=== PATIENT | female | born 1990 | race African-American/Black ===

== ENCOUNTER 2021-07-19 19:00 | Emergency (ER) | payer SELFPAY ==
[2021-07-19] MEDS ORDERED: Dexamethasone 10 MG/ML VIAL ONE (22:38)
[2021-07-19] MEDS ORDERED: Ketorolac Tromethamine 30 MG/ML VIAL ONE (22:38)
[2021-07-19 23:01] LABS: Bilirubin Neg (Negative); Blood, Urine 50 (Negative); Clarity Clear (Clear); Glucose, Urine (Dipstick) Normal (Negative); Ketone, Urine Negative (Negative); Leukocyte 25 (Negative); Nitrite Negative (Negative); Protein, Urine (Dipstick) Negative (Neg-Trace); Urobilinogen Normal mg/dL (Less than 2)
[2021-07-19 23:04] LABS: Pregnancy Test - Urine (BHCG) Negative (Negative); Pregu Control Background? CLEAR/WHITE (CLR/WHITE); Pregu Control Bar Appear? YES (CONTROL BAR)
[2021-07-19 23:11] LABS: Bacteria/HPF 2+ HPF (None Seen); Mucous/LPF 2+ LPF (<2+); RBC/HPF 0-3 HPF (0-3); Squamous Epithelial 0-3 HPF (0-3)
== END 2021-07-19 23:14 | disposition home or self-care (01) ==
LOC: CSHERS 19:00
DX: M54.50 Low back pain, unspecified (principal); D57.3 Sickle-cell trait; F17.210 Nicotine dependence, cigarettes, uncomplicated
CPT/HCPCS: 81003; 81015; 81025; 96372; 99283; J1100; J1885

== ENCOUNTER 2023-01-13 15:08 | Emergency (ER) | payer SELFPAY ==
[~2023-01-13 15:08] MED LIST: Iopamidol 370 76% 100 ML VIAL ONE
[2023-01-13] MEDS ORDERED: Ketorolac Tromethamine 30 MG/ML VIAL ONE (16:59)
[2023-01-13 17:27] LABS: #Basophils 0.1 10x3/uL (0.0-0.2); #Eosinphils 0.6 10x3/uL (0.0-0.5); #Monocytes 1.3 10x3/uL (0.0-1.1); #Neutrophils 14.1 10x3/uL (1.5-8.4); %Basophils 0.4 % (0.0-2.0); %Eosinophils 2.8 % (0.0-6.0); %Lymphocytes 19.1 % (18.0-47.0); %Monocytes 6.3 % (0.0-10.0); %Neutrophils 70.8 % (40.0-75.0); Hemoglobin 12.7 g/dL (12.0-15.5); Mean Corpuscular HGB CONC 33.1 g/dL (32.0-36.0); Mean Corpuscular Hemoglobin 30.9 pg (27.0-33.0); Mean Corpuscular Volume 93.4 fl (81.6-98.3); Mean Platelet Volume 9.6 fl (7.4-10.4); Platelet Count 347 10x3/uL (150-450); RBC Distribution Width 13.4 % (11.5-14.5); Red Blood Cell (RBC) Count 4.11 10x6/uL (3.90-5.03); White Blood Cell (WBC) Count 19.9 10x3/uL (3.5-10.5)
[2023-01-13 17:34] LABS: ALT (SGPT) 28 U/L (8-55); AST (SGOT) 23 U/L (5-34); Albumin 4.4 g/dL (3.5-5.0); Alkaline Phosphatase 54 U/L (40-110); Anion Gap 13 mmol/L (10-20); BUN (Urea Nitrogen) 11 mg/dL (7.0-18.7); Bilirubin, Total 0.2 mg/dL (0.2-1.2); Calc. Creatinine Clearance 0 mL/min (70-130); Calcium 9.5 mg/dL (7.8-10.44); Carbon Dioxide 20 mmol/L (22-29); Chloride 108 mmol/L (98-107); Estimated GFR 119; Glucose 88 mg/dL (70-105); Lipase 54 U/L (8-78); Magnesium 1.8 mg/dL (1.6-2.6); Protein, Total 7.4 g/dL (6.0-8.3); Sodium 137 mmol/L (136-145)
[2023-01-13 18:42] LABS: BHCG - Serum Negative (NEGATIVE); Pregs Control Background? CLEAR/WHITE (CLR/WHITE); Pregs Control Bar Appear? YES (CONTROL BAR)
[2023-01-14] MEDS ORDERED: Ondansetron PF 4 MG/2 ML Vial ONE (20:56)
[2023-01-14] MEDS ORDERED: Famotidine/PF 20 mg/2ml Vial ONE (20:56)
== END 2023-01-13 19:13 | disposition home or self-care (01) ==
LOC: CSHERS 15:08
DX: R10.9 Unspecified abdominal pain (principal); F17.210 Nicotine dependence, cigarettes, uncomplicated; D72.829 Elevated white blood cell count, unspecified
CPT/HCPCS: 74177; 80053; 83690; 83735; 84703; 85025; 96374; J1885; Q9967